=== PATIENT | female | born 1985 | race Caucasian/White ===

== ENCOUNTER 2017-01-23 11:51 | Inpatient (IN) | payer MEDICAID ==
[~2017-01-23] VITALS: Ht 165.1 cm; Wt 70.5 kg
[2017-01-23 12:17] VITALS: BP 107/72; PULSE 65; RESP 18; Ht 165.1 cm; Wt 70.5 kg
[2017-01-23] MEDS ORDERED: PREN-93 PO (12:23)
[2017-01-23] MEDS ORDERED: FERR134T PO (12:23)
--- NOTE | 2017-01-23 12:57 | RADRPT ---
PROCEDURE: OB ultrasound for biophysical profile CLINICAL INDICATION: Contractions TECHNIQUE: Multiple sonographic images of the pelvis were obtained. Transabdominal views of the g ravid uterus are available for review. The images were reviewed on a PACS workstation. COMPARISON: None FINDINGS: breathing movement = 2/2 tone = 2/2 motion = 2/2 POPEYE = 2/2 POPEYE = 12.5 cm Single live intrauterine with cardiac activity of 136 bpm. position is cephal ic. The placenta is anterior. IMPRESSION: 1. Single live intrauterine gestation. 2. Biophysical profile = 8. 3. POPEYE = 12.5 cm. RPTAT: HH .Mralys Castellon MD, MD Date Time Electronically viewed and signed by .Marlys Castellon MD, on 01/23/2017 12:56 .G/
--- NOTE | 2017-01-23 12:59 | RADRPT ---
PROCEDURE: US OB. CLINICAL INDICATION: Contractions TECHNIQUE: Multiple sonographic images of the pelvis were obtained. Transabdominal imaging only w as performed. The images were reviewed on a PACS workstation. COMPARISON: No prior studies are available for comparison. FINDINGS: There is a single live intrauterine gestation. Cardiac activity is present with 131 beats per minut e. position is cephalic. Measurements were made in order to determine age. The results are as follows: BPD = 9.23 cm HC = 32.86 cm AC = 33.63 cm FL = 7.29 cm. Estimated gestational age of approximately 37 weeks 3 days. The estimated date of delivery is 02/10/2017. The EFW = 3215 g, 17.7 %ile. The placenta is anterior. There is no evidence for an abruption or placenta previa. There are no adnexal masses. IMPRESSION: 1. Single live intrauterine gestation of approximately 37 weeks 3 days, by ultrasound criteria. 2. The estimated date of delivery is 02/10/2017. 3. The estimated weight is 3215 g, 17.7 %ile. RPTAT: HH .Marlys Castellon MD, MD Date Time Electronically viewed and signed by .aMrlys Castellon MD, on 01/23/2017 12:59 .G/
[2017-01-23] MEDS ORDERED: LACTATED RINGER'S 1,000 ML IV PRN (14:00)
[2017-01-23] MEDS ORDERED: LACTATED RINGER'S 1,000 ML IV SCH (14:50)
[2017-01-23] MEDS ORDERED: MISOPROSTOL 200 MCG TAB PR PRN (15:00)
[2017-01-23] MEDS ORDERED: OXYTOCIN 30 UNITS/LR 500 ML IV PRN (15:00)
[2017-01-23] MEDS ORDERED: AMPICILLIN 2 GM/NS (PMX) 100 ML IV ONE (15:00)
[2017-01-23] MEDS ORDERED: IBUPROFEN 600 MG TAB PO PRN (15:00)
[2017-01-23] MEDS ORDERED: LIDOCAINE 1% (MPF) 30 ML INJ INJ PRN (15:00)
[2017-01-23] MEDS ORDERED: METHYLERGONOVINE 0.2 MG INJ IM PRN (15:00)
[2017-01-23] MEDS ORDERED: HYDROCODONE/APAP (5/325) TAB PO PRN ×3 (15:00→20:30)
[2017-01-23] MEDS ORDERED: BUTORPHANOL 2 MG INJ IV PRN ×2 (15:00)
[2017-01-23] MEDS ORDERED: CARBOPROST 250 MCG INJ IM PRN (15:00)
[2017-01-23] MEDS ORDERED: OXYTOCIN 30 UNITS/LR 500 ML IV SCH ×2 (15:00)
[2017-01-23 15:30] LABS: BASOPHILS % 0.1 % (0.0-2.0); EOSINOPHILS % 0.1 % (0.0-7.0); HEMATOCRIT 38.9 % (37.0-47.0); LYMPHOCYTES # 1.8 10^3/ul (0.8-2.9); LYMPHOCYTES % 14.4 % (15.0-51.0); MEAN CORPUSCULAR HEMOGLOBIN 32.3 pg (29.0-33.0); MEAN CORPUSCULAR VOLUME 89.6 fl (82.0-101.0); MEAN PLATELET VOLUME 12.1 fl (7.4-10.4); MONOCYTE # 0.7 10^3/ul (0.3-0.9); NEUTROPHIL # 9.8 10^3/ul (1.6-7.5); PLATELET COUNT 181 10^3/UL (140-415); RED BLOOD COUNT 4.34 10^6/ul (4.20-5.40); RED CELL DISTRIBUTION WIDTH 13.7 % (11.5-14.5); WHITE BLOOD COUNT 12.4 10^3/ul (4.8-10.8)
[2017-01-23 15:59] LABS: INR 0.86; PARTIAL THROMBOPLASTIN TIME 26.7 Sec (25.0-35.0); PROTIME 11.7 Sec (12.2-14.2); PT RATIO 0.9
[2017-01-23] MEDS ORDERED: MINERAL OIL LIGHT 10 ML VIAL TOP ONE (16:30)
[2017-01-23 16:42] LABS: ALANINE AMINOTRANSFERASE 28 IU/L (13-69); ALBUMIN 3.6 g/dl (3.3-4.9); ALKALINE PHOSPHATASE 312 IU/L (42-121); ANION GAP 15 (8-16); ASPARTATE AMINO TRANSFERASE 27 IU/L (15-46); BILIRUBIN,INDIRECT 0.2 mg/dl (0-1.1); BILIRUBIN,TOTAL 0.2 mg/dl (0.2-1.3); BLOOD UREA NITROGEN 8 mg/dl (7-20); CALCIUM 9.5 mg/dl (8.4-10.2); CARBON DIOXIDE 19 mmol/L (21-31); CHLORIDE 109 mmol/L (97-110); CREATININE 0.65 mg/dl (0.44-1.00); GLUCOSE 83 mg/dl (70-220); POTASSIUM 3.9 mmol/L (3.5-5.1); SODIUM 139 mmol/L (135-144); TOTAL PROTEIN 7.2 g/dl (6.1-8.1)
[2017-01-23] MEDS: OXYTOCIN 30 UNITS/LR 500 ML IV SCH ×3 (18:08→20:30)
--- NOTE | 2017-01-23 18:37 | HP ---
Date/Time of Note Date/Time of Note DATE: 01/23/17 TIME: 18:32 OB - History Hx of Present Free Text/Dictation 31 years old female EDC January 22, 2017 admitted to the hospital at 40 weeks and 1 day a week examination on admission cervix 6 cm dilated 100% effaced vertex at -2 station contraction every 1-3 minutes quality strong heart rate category 1 patient sent to labor and delivery room anticipating vaginal delivery Estimated Due Date: Jan 22, 2017 : 1 Para: 0 Care: Good Care Ultrasounds: Normal mid trimester US Obstetrical Complications: None Medical Complications: None Past Family/Social History * Past Medical, Surgical, Family and Obstetric Histories reviewed from chart. Rubella: immune RPR/VDRL: Negative GBS Status: Negative HBsAG: Negative OB Admission Exam Vital Signs Vital Signs Vital Signs Date Time Temp Pulse Resp B/P Pulse Ox O2 Delivery O2 Flow Rate FiO2 01/23/17 12:17 98.1 65 18 107/72 98 Room Air Physical Exam HEENT: WNL Heart: Rhythm Normal Lungs: Clear, Equal Abdomen: WNL Extremities: Normal Reflexes: Normal Cervical Dilatation: 6cm Effacement: 100% Station: -1 Membranes: Ruptured Amniotic Fluid: Clear Heart Rate: 130's Accelerations: Accelerations Present Decelerations: Early Decelerations Varibility: Moderate Contractions on Admission: < 5 Minutes Apart Last 72 hours Lab Results CBC & BMP 01/23/17 15:13 Liver Function Test 01/23/17 15:13 Alanine Aminotransferase (ALT/SGPT) 28 Albumin 3.6 Alkaline Phosphatase 312 H Aspartate Amino Transf (AST/SGOT) 27 Direct Bilirubin 0.00 Total Protein 7.2 OB Assessment/Plan Reason for admission: other (Term in active labor) Other plan: 31 years old EDC January 22, 2007 admitted to [facility] in active labor cervical dilatation on admission cervix 6 cm dilated 100% effaced vertex at -1 -2 station premature rupture of membrane clear . Patient transferred from triage unit to the L&D anticipating vaginal delivery AMY ZHANG MD Jan 23, 2017 18:37
--- NOTE | 2017-01-23 18:40 | LDN ---
Date/Time of Note Date/Time of Note DATE: 01/23/17 TIME: 18:38 Delivery Summary Normal spontaneous vaginal delivery of a viable baby girl@at 40 weeks and 1 day shoulders delivered without any difficulty rest of the baby's body followed cord clamped after stopped pulsation placenta spontaneous expulsion is inspected complete, estimated blood loss 300 cc patient sustained first-degree vaginal perineal laceration which repaired with 3-0 and 4-0 chromic catgut Placenta Delivered: Spontaneously Anesthesia type: Local Sponge & Needle done & correct: Yes All needle counts correct: Yes Any foreign bodies felt in the: No Problems: Infant Delivery Information Sex Infant Sex: female Apgars 1 Minute: 8 5 Minute: 9 Suctioning Nose & mouth suctioned at mercedes: Yes Delee suction performed: No Umbilical Cord Umbilical cord with: 3 Vessels Cord presentations: nuchal cord Nuchal cord present X: 1 Cord Blood was obtained: Yes AMY ZHANG MD Jan 23, 2017 18:40
[2017-01-23] MEDS ORDERED: AMPICILLIN 1 GM/NS (PMX) 50 ML IV SCH (19:00)
[2017-01-23] MEDS ORDERED: DIBUCAINE 1% 30 GM OINT PR PRN (20:30)
[2017-01-23] MEDS ORDERED: BENZOCAINE 20% 56 ML SPRAY TOP PRN (20:30)
[2017-01-23] MEDS ORDERED: LANOLIN 7 GM TUBE TOP PRN (20:30)
[2017-01-23] MEDS ORDERED: WITCH HAZEL/GLYCERIN PAD PR PRN (20:30)
[2017-01-23] MEDS ORDERED: ACETAMINOPHEN 325 MG TAB PO PRN (20:30)
[2017-01-23] MEDS ORDERED: ONDANSETRON 4 MG INJ IV PRN (20:30)
[2017-01-23] MEDS ORDERED: OXYCODONE/ASPIRIN (4.88/325) TAB PO PRN ×2 (20:30)
[2017-01-23 20:45] VITALS: BP 125/62; PULSE 61; RESP 18
[2017-01-23] MEDS: SENNA/DOCUSATE NA (8.6MG/50MG) TAB PO SCH (20:47)
[2017-01-23 21:15] VITALS: BP 119/73; PULSE 61; RESP 18
[2017-01-24] VITALS: BP 108/58; PULSE 63; RESP 18
[2017-01-24] MEDS: IBUPROFEN 600 MG TAB PO SCH ×4 (00:17→18:23)
[2017-01-24] MEDS: OXYTOCIN 30 UNITS/LR 500 ML IV SCH (00:30)
[2017-01-24 04:00] VITALS: BP 100/57; PULSE 69
[2017-01-24 07:40] VITALS: BP 110/72; PULSE 53; RESP 18
[2017-01-24] MEDS ORDERED: INFLUENZA VIRUS VACCINE 0.5 ML (DISPENSING) IM* ONE (09:00)
[2017-01-24 09:08] LABS: BASOPHILS % 0.2 % (0.0-2.0); EOSINOPHILS % 0.3 % (0.0-7.0); HEMATOCRIT 33.8 % (37.0-47.0); HEMOGLOBIN 11.4 g/dl (12.0-16.0); LYMPHOCYTES # 1.4 10^3/ul (0.8-2.9); LYMPHOCYTES % 10.1 % (15.0-51.0); MEAN CORPUSCULAR HEMOGLOBIN 31.1 pg (29.0-33.0); MEAN CORPUSCULAR HGB CONC 33.7 g/dl (32.0-37.0); MEAN CORPUSCULAR VOLUME 92.3 fl (82.0-101.0); MONOCYTE # 0.9 10^3/ul (0.3-0.9); MONOCYTES % 6.5 % (0.0-11.0); NEUTROPHIL # 11.1 10^3/ul (1.6-7.5); NEUTROPHILS % 82.6 % (39.0-77.0); PLATELET COUNT 145 10^3/UL (140-415); RED BLOOD COUNT 3.66 10^6/ul (4.20-5.40); RED CELL DISTRIBUTION WIDTH 14.2 % (11.5-14.5); WHITE BLOOD COUNT 13.4 10^3/ul (4.8-10.8)
[2017-01-24] MEDS: SENNA/DOCUSATE NA (8.6MG/50MG) TAB PO SCH ×2 (09:09→21:21)
[2017-01-24 11:55] VITALS: BP 107/70; PULSE 67; RESP 19
--- NOTE | 2017-01-24 12:54 | QN ---
Documentation Comment Post normal vaginal delivery day 1 Afebrile Vital signs are stable Abdomen soft uterus firm lochia normal Extremity normal Ambulation encouraged AMY ZHANG MD Jan 24, 2017 12:54
[2017-01-24 15:50] VITALS: BP 110/56; PULSE 64; RESP 18
[2017-01-24 20:15] VITALS: BP 108/63; PULSE 66; RESP 18
[2017-01-25] MEDS: IBUPROFEN 600 MG TAB PO SCH ×3 (00:21→12:00)
[2017-01-25 04:00] VITALS: BP 105/66; PULSE 58; RESP 18
[2017-01-25 08:30] VITALS: BP 103/70; PULSE 60; RESP 19
[2017-01-25] MEDS ORDERED: MEASLES,MUMPS,RUBELLA VACCINE INJ SC* ONE (09:00)
[2017-01-25] MEDS: SENNA/DOCUSATE NA (8.6MG/50MG) TAB PO SCH (10:14)
--- NOTE | 2017-01-25 10:53 | PD.PPDC ---
QUALITY CHECKER Discharge Instruction Condition Patient Condition: Good Diet Diet: Resume Regular Diet Activity/Restrictions Activity: Normal Activity May Shower Restrictions: No Exercising No Lifting No Driving No Sexual Activity Nothing in the Vagina No [place] No Tampons, douche Follow-up Follow-up with Physician: 2, Week/Weeks Provider Information: instructions given recommended to be seen at the clinic in 2 weeks Return to clinic for [facility] Instructions: Fever greater than 101 Chills Worsening abdominal pain Excessive Vaginal Bleeding More than 2 pads per hour Unable to tolerate diet OB Instructions: Breast Tenderness Depression Blurried Vision Headache AMY ZHANG MD Jan 25, 2017 10:53
--- NOTE | 2017-01-25 10:57 | DS ---
Date/Time of Note Date/Time of Note DATE: 01/25/17 TIME: 10:54 Discharge Summary Admission/Discharge Info Admit Date/Time Jan 23, 2017 at 14:45 Discharge Date/Time January 25, 2017 at 1055 Discharge Diagnosis Post normal vaginal delivery day 2 Patient Condition: Good Procedures Lillian vaginal delivery Hx of Present Illness Term Hospital Course Satisfactory uneventful Home Meds Reported Medications Ferrous Sulfate (Iron) 134 Mg Tablet, 325 MG PO, TAB 01/23/17 Vit No.124/Iron/FA ( Vitamin Tablet) 1 Each Tablet, 1 EACH PO, TAB 01/23/17 Follow-up Plan instructions given recommended to make appointment to be seen at the clinic in 2 weeks Primary Care Provider Care Physician No Primary Time spent on discharge: < 30 minutes AMY ZHANG MD Jan 25, 2017 10:57
[2017-01-25] MEDS ORDERED: DIPHTH/TET/ACEL PERTUSS (ADULT) 0.5 ML VIAL IM* ONE (11:00)
== END 2017-01-25 14:43 | disposition home or self-care (01) | DRG 775 ==
LOC: L-D 11:51 → OBT 11:51 → L-D 14:45 → PP1 20:38
PROVIDERS: ADMIT Obstetrics & Gynecology; ATTEND Obstetrics & Gynecology
PROC: 10E0XZZ Delivery of Products of Conception, External Approach (ICD-10-PCS; principal; 2017-01-23)
DX: O80 Encounter for full-term uncomplicated delivery (principal); Z37.0 Single live birth; Z3A.40 40 weeks gestation of pregnancy
CPT/HCPCS: 76815; 76818; 80053; 85025; 85610; 85730; 86592; 86900; 86901; 87340; 90686; 90715; A4310; G0463; J0290; J0595; J2590; J7120